=== PATIENT | male | born 1955 | race Caucasian/White ===

== ENCOUNTER 2023-05-06 07:26 | Outpatient (CLI) | payer OTHER ==
[~2023-05-06 07:26] MED LIST: MOTRIN800 MG PO; PERCOCET 5/3251 TAB PO
== END 2023-05-06 07:44 | disposition home or self-care (01) ==
LOC: SONOGRAMA 07:26
PROVIDERS: ATTEND Internal Medicine Gastroenterology
DX: R94.5 Abnormal results of liver function studies (principal)